=== PATIENT | female | born 1960 | race Caucasian/White ===

== ENCOUNTER → 2023-09-09 09:39 | Outpatient (REF) | payer OTHER, SELFPAY ==
[2023-09-09 12:00] LABS: ALT (SGPT) 18 U/L (0-35); AST (SGOT) 22 U/L (14-36); Alkaline Phosphatase 76 U/L (38-126); Direct Bilirubin 0.4 mg/dl (0.0-0.4); HDL Cholesterol 54 mg/dl; LDL Cholesterol, Calculated 98 mg/dl; Total Bilirubin 0.6 mg/dl (0.2-1.3); Total Cholesterol 196 mg/dl (50-199); Total Protein 6.9 g/dl (6.3-8.2); Triglyceride 221 mg/dl (10-149); Very Low Density Lipoprotein 44 mg/dl (0-30)
[2023-09-09 12:17] LABS: Vitamin D, 25-OH*** 44.6 ng/mL (30-80)
== END ==
LOC: HWLAB 09:39
PROVIDERS: ATTENDING PHYSICIAN Family Medicine
DX: E78.2 Mixed hyperlipidemia (principal); R73.01 Impaired fasting glucose; E55.9 Vitamin D deficiency, unspecified
CPT/HCPCS: 36415; 80061; 80076; 82306

== ENCOUNTER 2023-09-29 06:12 | Day surgery (SDC) | payer OTHER, SELFPAY ==
--- NOTE | 2023-08-22 09:51 | CM ---
Patient is scheduled for an elective L THR on 09/29/23. Spoke with patient prior to surgery via telephone. Patient had a R THR at in 2018. Reintroduced role of Orthopedic Navigator. Patient reports that she lives with her and daughter in a
two story home. There are four steps to enter (with bilateral rails) and a flight of steps with a landing to the second floor (bilateral rails initially then right ascending rail only after the landing). There is a powder room on the first floor.
She currently functions independently and uses a cane outside of the home. She also has a rolling walker, two raised toilet seats, firms cushion, shower seat, grab bar in shower and hip kit. She has never had VN services. PCP is Nazia Burton.
Discussed orthopedic program and post surgical plans. Reviewed anticipated length of stay and that goal is for her to return home at discharge. Also reviewed outpatient PT. Patient is in agreement with tentative plan and will go directly to
outpatient PT at [facility]. She will have support from her and daughter when she goes home.
Patient will complete online education.
Plan: Orthopedic Navigator will remain available to assist with the care of patient and will reassess discharge needs after surgery.
[2023-09-08 13:03] VITALS: BMI 30.9
[2023-09-08 13:46] LABS: Hematocrit 43.7 % (37.0-47.0); Hemoglobin 15.2 g/dL (12.0-16.0); Mean Corp Hgb Conc. 34.8 g/dL (33.0-37.0); Mean Corpuscular Hgb 30.7 pg (27.0-31.0); Mean Corpuscular Volume 88.3 fL (81.0-99.0); Mean Platelet Volume 9.9 fL (7.4-10.4); Platelet Count 262 10^3/uL (130-400); Red Blood Cell Count 4.95 10^6/uL (4.20-5.40); Red Cell Dist. Width 12.7 % (11.5-14.5); White Blood Cell Count 6.2 10^3/uL (4.8-10.8)
[2023-09-08 14:03] LABS: ALT (SGPT) 19 U/L (0-35); AST (SGOT) 23 U/L (14-36); Albumin 4.4 g/dl (3.5-5.0); Alkaline Phosphatase 85 U/L (38-126); Blood Urea Nitrogen 17 mg/dl (7-17); Calcium 9.6 mg/dl (8.4-10.2); Carbon Dioxide 26 mmol/L (22-30); Chloride 106 mmol/L (98-107); Estimated Creatinine Clearance 90 ml/min; Glucose 115 mg/dl (70-99); Potassium 3.9 mmol/L (3.5-5.1); Sodium 137 mmol/L (135-145); Total Bilirubin 0.5 mg/dl (0.2-1.3); Total Protein 7.3 g/dl (6.3-8.2); eGFR > 60.00
[2023-09-08 14:55] LABS: Glycohemoglobin (HgbA1c) 6.1 % (4.0-5.6)
[2023-09-22 11:17] VITALS: BMI 30.9
[2023-09-29] VITALS (13 sets, daily range): BP systolic 105–168; BP diastolic 60–94; PULSE 87
[2023-09-29] MEDS: CELEBREX 200 MG PO (06:48)
[2023-09-29] MEDS: TYLENOL 650 MG PO ×2 (06:48→21:19)
[2023-09-29] MEDS: NORMOSOL-R 1000 IV ×2 (07:06→10:57)
[2023-09-29] MEDS: SUBLIMAZE 50 MCG IV ×2 (10:00→10:43)
[2023-09-29] MEDS: ANCEF 5 IV (17:11)
[2023-09-29] MEDS: COMPAZINE 5 MG PO (17:11)
[2023-09-29] MEDS: ASPIRIN 325 MG PO (17:11)
[2023-09-29] MEDS: BACTROBAN 2% OINTMENT 1 APPLIC NASAL (21:17)
[2023-09-29] MEDS: COLACE 100 MG PO (21:18)
[2023-09-29] MEDS: TORADOL 15 MG IV (21:18)
[2023-09-29] MEDS: DECADRON 4 MG PO (21:18)
[2023-09-29] MEDS: SENOKOT 17.1999999999999993 MG PO (21:18)
--- NOTE | 2023-09-29 21:33 | W.PN.UPDATE ---
Update Note
Progress Note Update
Patient admitted by orthopedics for left total hip arthroplasty. Home medications not ordered, patient requested orders for hypertension and cholesterol be ordered. Orders entered for atorvastatin, lisinopril and metoprolol.
[2023-09-29] MEDS: TOPROL XL 200 MG PO (21:46)
[2023-09-29] MEDS: LIPITOR 10 MG PO (21:46)
[2023-09-29] MEDS: COMPAZINE PO (21:51)
[2023-09-30] MEDS: TYLENOL PO ×3 (00:48→04:53)
[2023-09-30] MEDS: ANCEF 5 IV (01:08)
[2023-09-30 03:32] VITALS: BP 118/73
[2023-09-30] MEDS: ZOFRAN 4 MG IV (03:52)
[2023-09-30 08:00] VITALS: BP 124/74
--- NOTE | 2023-09-30 08:41 | CM ---
Addendum entered by Lindsay Gomez 09/30/23 11:16:
Patient did well in therapy. She has no concerns about going home.
Original Note:
Reviewed chart and held rounds with PT, OT and nursing. Patient admitted as planned for elective L THR. Met with patient and her at bedside. Confirmed information previously obtained for assessment. Also discussed discharge plans. The plan
is for patient to return home at discharge. Patient's works from home and will be available to provide support. Patient will go directly to outpatient PT and will go to [facility]. She has an appointment scheduled for Friday, 09/30.
Patient has all needed DME.
She will use [facility] pharmacy for discharge prescriptions.
[2023-09-30] MEDS: BACTROBAN 2% OINTMENT 1 APPLIC NASAL (09:25)
[2023-09-30] MEDS: TYLENOL 650 MG PO ×2 (09:25→11:53)
[2023-09-30] MEDS: DECADRON 4 MG PO (09:25)
[2023-09-30] MEDS: COMPAZINE 5 MG PO (09:25)
[2023-09-30] MEDS: TORADOL 15 MG IV (09:25)
[2023-09-30] MEDS: COLACE 100 MG PO (09:26)
[2023-09-30] MEDS: ASPIRIN 325 MG PO (09:26)
[2023-09-30] MEDS: SENOKOT 17.1999999999999993 MG PO (09:26)
[2023-09-30] MEDS: MAALOX 30 ML PO (09:36)
[2023-09-30 09:49] VITALS: BP 139/81; PULSE 101; O2SAT 95
[2023-09-30 12:00] VITALS: BP 122/63
--- NOTE | 2023-09-30 12:02 | W.PN.ORTHO ---
Today's Communication / Plan
-
d/c
Assessment
.
Distal Motor Intact: Yes
Dressing:
Clean, dry and intact.
Plan
.
Surgery / Date: Spencer Mason 09/29/23
DVT Prophylaxis: Aspirin
Activity:
Out of bed.
PT/OT
Discharge Plan: Home w/ Outpatient PT
Subjective
.
.:
Patient resting comfortably.
Vital Signs and Labs
.
Vital Signs and Labs:
Lab Results
09/08/23 12:53
09/08/23 12:53
Temp Pulse Resp BP Pulse Ox
98.3 F 94 19 124/74 95
09/30/23 08:00 09/30/23 08:00 09/30/23 08:00 09/30/23 09:25 09/30/23 08:00
Non-invasive Hgb result: 13.8
Physical Exam
-
EXTREMITIES: strength equal, no calf pain with palpation
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 No focal deficits. pantomimist grossly intact
--- NOTE | 2023-09-30 12:10 | W.DS.TRANS ---
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
-
Discharge Instructions:
Sleep Apnea Risk Low
Discharge Diagnosis/Procedures L ISAUR[facility] Dr. Mason 09/29/23
Diet As tolerated
Activity With Walker
Driving Restrictions No driving
Bathing Restrictions OK to Shower
Other Services PT
Instructions:
Stand-Alone Forms: Total Hip/Knee Replacement D/C
Changes to Home Medications: Yes
Discharge Medications:
DC Medications w/original date entered in [facility]
Clear Eyes 1 drp BOTH EYES PRN PRN redness 03/03/18
Lactobacillus acidophilus 10 billion cell capsule (Probiotic) 1 ea PO DAILY 03/03/18
atorvastatin 10 mg tablet 10 mg PO QPM 03/03/18
metoprolol succinate 200 mg tablet,extended release 24 hr (Toprol XL) 200 mg PO HS ##0 03/31/18
biotin 1,000 mcg chewable tablet 1,000 mcg PO .2 TIMES A WEEK 09/05/23
calcium carbonate 600 mg-vitamin D3 5 mcg (200 unit) capsule (Calcium 600 + D(3)) 1 cap PO DAILY 09/05/23
cholecalciferol (vitamin D3) 50 mcg (2,000 unit) tablet (Vitamin D3) 50 mcg PO DAILY 09/05/23
lisinopril 2.5 mg tablet 2.5 mg PO DAILY 09/05/23
multivitamin 1 tab PO DAILY 09/05/23
mupirocin 2 % topical ointment 1 applic topical BID infection prevention #1 tube 09/08/23
acetaminophen 325 mg capsule (Tylenol) 650 mg PO QID #2 caps 09/30/23
aspirin 325 mg tablet 325 mg PO DAILY blood clot prevention #1 tab 09/30/23
dexamethasone 4 mg tablet 4 mg PO BID inflammation #6 tabs 09/30/23
docusate sodium 100 mg capsule (Colace) 100 mg PO BID stool softner #1 cap 09/30/23
famotidine 20 mg tablet 20 mg PO HS GI prophylaxis #30 tabs 09/30/23
hydrocodone 5 mg-acetaminophen 325 mg tablet 1 tab PO Q6H PRN 1 tab moderate pain or 2 if severe #30 tabs 09/30/23
ibuprofen 200 mg tablet 400 mg PO BID Anti-inflammatory #0 tabs 09/30/23
magnesium hydroxide 400 mg/5 mL oral suspension (Milk of Magnesia) 30 ml PO HS PRN Constipation #1 mL 09/30/23
prochlorperazine maleate 5 mg tablet 5 mg PO Q6HPRN PRN n/v #15 tabs 09/30/23
sennosides 8.6 mg tablet (Senokot) 17.2 mg PO BID laxative #2 tabs 09/30/23
Home Medication Changes
dexamethasone 4 mg tablet 4 mg PO BID inflammation #6 tabs 09/30/23
famotidine 20 mg tablet 20 mg PO HS GI prophylaxis #30 tabs 09/30/23
hydrocodone 5 mg-acetaminophen 325 mg tablet 1 tab PO Q6H PRN 1 tab moderate pain or 2 if severe #30 tabs 09/30/23
ibuprofen 200 mg tablet 400 mg PO BID Anti-inflammatory #0 tabs 09/30/23
prochlorperazine maleate 5 mg tablet 5 mg PO Q6HPRN PRN n/v #15 tabs 09/30/23
Pending Results: No
== END 2023-09-30 13:59 | disposition home or self-care (01) ==
LOC: SDS 06:12
PROVIDERS: ATTENDING PHYSICIAN Specialist; FAMILY PHYSICIAN Family Medicine; OTHER PHYSICIAN Nuclear Medicine Nuclear Cardiology; OTHER PHYSICIAN Physician Assistant Medical
DX: M16.12 Unilateral primary osteoarthritis, left hip (principal)
CPT/HCPCS: 27130; C1776; C1713; 36415; 73502; 80053; 83036; 85027; 87070; 97110; 97116; 97162; 97166; 97530; 97535

== ENCOUNTER → 2024-05-21 07:46 | Outpatient (REF) | payer OTHER, SELFPAY ==
[2024-05-21 09:39] LABS: ALT (SGPT) 24 U/L (0-35); AST (SGOT) 23 U/L (14-36); Albumin 4.4 g/dl (3.5-5.0); Alkaline Phosphatase 74 U/L (38-126); HDL Cholesterol 58 mg/dl; LDL Cholesterol, Calculated 119 mg/dl; Total Bilirubin 0.5 mg/dl (0.2-1.3); Total Cholesterol 216 mg/dl (50-199); Total Protein 7.2 g/dl (6.3-8.2); Triglyceride 198 mg/dl (10-149); Very Low Density Lipoprotein 39 mg/dl (0-30)
[2024-05-21 09:56] LABS: Vitamin D, 25-OH*** 45.7 ng/mL (30-80)
[2024-05-21 10:10] LABS: TSH 1.74 uIU/ml (0.47-4.68)
[2024-05-21 10:28] LABS: Hepatitis B Surface Antibody Negative
[2024-05-21 12:20] LABS: Glycohemoglobin (HgbA1c) 5.5 % (4.0-5.6)
== END ==
LOC: HWLAB 07:46
PROVIDERS: ATTENDING PHYSICIAN Internal Medicine Endocrinology, Diabetes & Metabolism; FAMILY PHYSICIAN Family Medicine
DX: E05.00 Thyrotoxicosis with diffuse goiter without thyrotoxic crisis or storm (principal); Z01.84 Encounter for antibody response examination; R73.01 Impaired fasting glucose; E78.2 Mixed hyperlipidemia; E55.9 Vitamin D deficiency, unspecified
CPT/HCPCS: 36415; 80061; 80076; 82306; 83036; 84443; 86706

== ENCOUNTER → 2024-06-07 14:49 | Outpatient (REF) | payer OTHER, SELFPAY | LOC: HWWDC 14:49 | PROVIDERS: ATTENDING PHYSICIAN Obstetrics & Gynecology Gynecology; FAMILY PHYSICIAN Family Medicine | DX: Z12.31 Encounter for screening mammogram for malignant neoplasm of breast (principal) | CPT/HCPCS: 77063; 77067 ==

== ENCOUNTER → 2024-06-14 06:38 | Day surgery (SDC) | payer OTHER, SELFPAY | LOC: GI 06:38 | PROVIDERS: ATTENDING PHYSICIAN Internal Medicine Gastroenterology | DX: Z12.11 Encounter for screening for malignant neoplasm of colon (principal); R19.5 Other fecal abnormalities; K57.30 Diverticulosis of large intestine without perforation or abscess without bleeding; D12.5 Benign neoplasm of sigmoid colon; D12.2 Benign neoplasm of ascending colon; K63.5 Polyp of colon | CPT/HCPCS: 45385; 45380; 88305 ==

== ENCOUNTER → 2024-11-15 09:57 | Outpatient (REF) | payer OTHER, SELFPAY ==
[2024-11-15 11:44] LABS: % Basophils 0.9 % (0-2); % Immature Granulocytes 0.2 % (0-0.5); % Lymphocytes 32.7 % (20.5-51.1); % Monocytes 7.6 % (1.7-9.3); % Neutrophils 54.6 % (42.2-75.2); Absolute Eosinophils 0.2 10^3/uL (0-0.7); Absolute Lymphocytes 1.5 10^3/uL (1.2-3.4); Absolute Monocytes 0.3 10^3/uL (0.1-0.6); Absolute Neutrophils 2.4 10^3/uL (1.4-6.5); Hemoglobin 15.2 g/dL (12.0-16.0); Mean Corp Hgb Conc. 33.8 g/dL (33.0-37.0); Mean Corpuscular Hgb 29.8 pg (27.0-31.0); Mean Corpuscular Volume 88.2 fL (81.0-99.0); Nucleated Red Blood Cells % 0 %; Platelet Count 244 10^3/uL (130-400); Red Cell Dist. Width 12.9 % (11.5-14.5); White Blood Cell Count 4.5 10^3/uL (4.8-10.8)
[2024-11-15 11:57] LABS: ALT (SGPT) 19 U/L (0-35); AST (SGOT) 20 U/L (14-36); Albumin 4.1 g/dl (3.5-5.0); Alkaline Phosphatase 70 U/L (38-126); Blood Urea Nitrogen 15 mg/dl (7-17); Calcium 9.8 mg/dl (8.4-10.2); Carbon Dioxide 27 mmol/L (22-30); Chloride 108 mmol/L (98-107); Glucose 111 mg/dl (70-99); HDL Cholesterol 53 mg/dl; LDL Cholesterol, Calculated 126 mg/dl; Potassium 4.7 mmol/L (3.5-5.1); Sodium 140 mmol/L (135-145); Total Bilirubin 0.7 mg/dl (0.2-1.3); Total Cholesterol 211 mg/dl (50-199); Triglyceride 163 mg/dl (10-149); Very Low Density Lipoprotein 32 mg/dl (0-30); eGFR > 60.00
[2024-11-15 12:07] LABS: Vitamin D, 25-OH*** 44.5 ng/mL (30-80)
[2024-11-15 12:18] LABS: Glycohemoglobin (HgbA1c) 5.8 % (4.0-5.6)
[2024-11-15 12:21] LABS: TSH 1.39 uIU/ml (0.47-4.68)
== END ==
LOC: HWLAB 09:57
PROVIDERS: ATTENDING PHYSICIAN Family Medicine
DX: R73.01 Impaired fasting glucose (principal); E78.2 Mixed hyperlipidemia; E55.9 Vitamin D deficiency, unspecified
CPT/HCPCS: 36415; 80053; 80061; 82306; 83036; 84443; 85025

== ENCOUNTER → 2025-05-27 09:51 | Outpatient (REF) | payer OTHER, SELFPAY ==
[2025-05-27 12:27] LABS: Hematocrit 47.7 % (37.0-47.0); Hemoglobin 15.9 g/dL (12.0-16.0); Mean Corp Hgb Conc. 33.3 g/dL (33.0-37.0); Mean Corpuscular Volume 90.9 fL (81.0-99.0); Nucleated Red Blood Cells % 0 %; Platelet Count 240 10^3/uL (130-400); Red Cell Dist. Width 13.0 % (11.5-14.5)
[2025-05-27 12:48] LABS: ALT (SGPT) 24 U/L (0-35); AST (SGOT) 23 U/L (14-36); HDL Cholesterol 56 mg/dl; LDL Cholesterol, Calculated 110 mg/dl; Very Low Density Lipoprotein 33 mg/dl (0-30)
[2025-05-27 13:00] LABS: Vitamin D, 25-OH*** 54.5 ng/mL (30-80)
[2025-05-27 13:14] LABS: TSH 1.22 uIU/ml (0.47-4.68)
[2025-05-27 13:45] LABS: Glycohemoglobin (HgbA1c) 5.8 % (4.0-5.9)
== END ==
LOC: HWLAB 09:51
PROVIDERS: ATTENDING PHYSICIAN Family Medicine
DX: R73.01 Impaired fasting glucose (principal); E78.2 Mixed hyperlipidemia; E55.9 Vitamin D deficiency, unspecified; E05.90 Thyrotoxicosis, unspecified without thyrotoxic crisis or storm; D72.818 Other decreased white blood cell count
CPT/HCPCS: 36415; 80061; 82306; 83036; 84443; 84450; 84460; 85025

== ENCOUNTER 2025-06-23 06:23 | Day surgery (SDC) | payer OTHER, SELFPAY | END 2025-06-23 12:20 | disposition home or self-care (01) | LOC: GI 06:23 | PROVIDERS: ATTENDING PHYSICIAN Internal Medicine Gastroenterology | DX: Z12.11 Encounter for screening for malignant neoplasm of colon (principal); K63.5 Polyp of colon; K63.89 Other specified diseases of intestine; K57.30 Diverticulosis of large intestine without perforation or abscess without bleeding; Z86.0101 Personal history of adenomatous and serrated colon polyps | CPT/HCPCS: 45385; 45380; 88305 ==